=== PATIENT | female | born 1940 | race Native Hawaiian/Other Pacific Islander ===

== ENCOUNTER 2019-01-02 23:26 | Inpatient (IN) | payer MEDICARE ==
[~2019-01-02] VITALS: Ht 160 cm; Wt 81.0 kg
[2019-01-03 00:07] LABS: BASOPHILS % (AUTO) 0.5 % (0.0-2.0); EOSINOPHILS % (AUTO) 0.1 % (1.0-6.0); HEMATOCRIT 43.6 % (36-46); HEMOGLOBIN 14.4 g/dL (12.0-16.0); LYMPHOCYTES # (AUTO) 1.2 K/uL (1.0-4.8); LYMPHOCYTES % (AUTO) 9.6 % (22.0-44.0); MEAN CORPUSCULAR HEMOGLOBIN 31.7 pg (26.0-34.0); MEAN CORPUSCULAR HGB CONC 33.1 G/dL (31.0-37.0); MEAN CORPUSCULAR VOLUME 96 fL (80-100); MONOCYTES # (AUTO) 0.4 K/uL (0.1-1.0); MONOCYTES % (AUTO) 3.3 % (2.0-9.0); NEUTROPHILS # (AUTO) 10.5 K/uL (1.8-7.7); PLATELET COUNT (AUTO) 252 K/uL (150-450); RED BLOOD CELL COUNT(AUTO) 4.55 MIL/uL (4.00-5.20)
[2019-01-03 00:08] LABS: CALCIUM, TOTAL 10.5 mg/dL (8.8-10.5); CREATININE 1.21 mg/dL (0.60-1.30); NEUTROPHILS % (AUTO) 86.5 % (40.0-70.0); POTASSIUM 4.1 mmol/L (3.5-5.1)
[2019-01-03 00:12] LABS: ALBUMIN 4.4 g/dL (3.4-5.0); BILIRUBIN,TOTAL 0.8 mg/dL (0.1-1.0); TOTAL PROTEIN, SERUM 8.2 g/dL (6.4-8.2)
[2019-01-03] MEDS ORDERED: ONDANSETRON HCL 4 MG/2 ML VIAL IVP ONE ×2 (00:15→03:30)
[2019-01-03] MEDS ORDERED: MORPHINE SULFATE 4 MG/ML SYRINGE IVP ONE ×2 (00:15→03:30)
[2019-01-03] MEDS ORDERED: BARIUM SULFATE 0.1% SUSPENSION 450 ML BOTTLE PO ONE (00:15)
[2019-01-03] MEDS ORDERED: IOVERSOL 350 MG/ML 100 ML VIAL ONE (00:19)
[2019-01-03] MEDS ORDERED: SODIUM CHLORIDE 0.9% 100 ML ONE (00:20)
[2019-01-03 03:07] LABS: APPEARANCE,URINE CLEAR (CLEAR); BILIRUBIN,URINE NEGATIVE (NEGATIVE); GLUCOSE, URINE (UA) NEGATIVE (NEGATIVE); KETONES,URINE NEGATIVE (NEGATIVE); LEUKOCYTE ESTERASE ,URINE NEGATIVE (NEGATIVE); NITRATE,URINE NEGATIVE (NEGATIVE); OCCULT BLOOD,URINE SMALL (NEGATIVE); PROTEIN,URINE NEGATIVE (NEGATIVE); UROBILINOGEN,URINE 0.2 mg/dL (<=1.0)
[2019-01-03 03:50] LABS: BACTERIA,URINE None Seen /HPF (None Seen); SQUAMOUS EPITHELIAL CELL,UR Few /LPF (None Seen); WBC,URINE 0-2 /HPF (0-5)
[2019-01-03] MEDS ORDERED: ACETAMINOPHEN 325 MG TABLET PO PRN ×2 (04:15→07:30)
[2019-01-03] MEDS ORDERED: 0.9% SODIUM CHLORIDE 10 ML SYRINGE IVP PRN (04:15)
[2019-01-03] MEDS ORDERED: ONDANSETRON HCL 4 MG/2 ML VIAL IVP PRN ×2 (04:15→07:30)
[2019-01-03 05:10] VITALS: BP 145/71
[2019-01-03] MEDS ORDERED: PNEUMOCOCCAL VACCINE POLYVALENT 0.5 ML VIAL [PPSV23] IM ONE (06:30)
[2019-01-03] MEDS ORDERED: MORPHINE SULFATE 2 MG/ML SYRINGE IVP PRN (07:30)
[2019-01-03] MEDS ORDERED: DEXTROSE 5%-0.45% SODIUM CHL 1,000 ML IV ONE (07:30)
[2019-01-03 07:34] VITALS: BP 131/58
[2019-01-03] MEDS: DOCUSATE SODIUM 100 MG CAPSULE PO SCH ×2 (07:58→19:34)
[2019-01-03] MEDS: HEPARIN SODIUM,PORCINE 5,000 UNITS/ML VIAL SQ SCH ×2 (08:02→16:58)
[2019-01-03 11:18] VITALS: BP 135/60
[2019-01-03 14:52] LABS: BASOPHILS % (AUTO) 0.1 % (0.0-2.0); EOSINOPHILS % (AUTO) 0.5 % (1.0-6.0); HEMATOCRIT 42.9 % (36-46); HEMOGLOBIN 14.1 g/dL (12.0-16.0); LYMPHOCYTES # (AUTO) 0.7 K/uL (1.0-4.8); LYMPHOCYTES % (AUTO) 12.5 % (22.0-44.0); MEAN CORPUSCULAR HEMOGLOBIN 31.6 pg (26.0-34.0); MEAN CORPUSCULAR HGB CONC 32.9 G/dL (31.0-37.0); MEAN CORPUSCULAR VOLUME 96 fL (80-100); MONOCYTES # (AUTO) 0.4 K/uL (0.1-1.0); MONOCYTES % (AUTO) 6.2 % (2.0-9.0); NEUTROPHILS # (AUTO) 4.8 K/uL (1.8-7.7); NEUTROPHILS % (AUTO) 80.7 % (40.0-70.0); PLATELET COUNT (AUTO) 227 K/uL (150-450); RED BLOOD CELL COUNT(AUTO) 4.46 MIL/uL (4.00-5.20); RED CELL DISTRIBUTION WIDTH 14.1 % (11.5-14.5)
[2019-01-03 15:12] VITALS: BP 126/58
[2019-01-03] MEDS: PANTOPRAZOLE SODIUM 40 MG/VIAL IVP SCH (15:18)
[2019-01-03 15:19] LABS: ALBUMIN 3.7 g/dL (3.4-5.0); BILIRUBIN,TOTAL 1.2 mg/dL (0.1-1.0); CREATININE 1.17 mg/dL (0.60-1.30); TOTAL PROTEIN, SERUM 7.3 g/dL (6.4-8.2)
[2019-01-03 18:23] VITALS: BP 126/58
[2019-01-03 19:42] VITALS: BP 121/63
[2019-01-04] VITALS (7 sets, daily range): BP systolic 113–128; BP diastolic 43–70
[2019-01-04] MEDS: HEPARIN SODIUM,PORCINE 5,000 UNITS/ML VIAL SQ SCH ×4 (00:01→23:08)
[2019-01-04] MEDS: DOCUSATE SODIUM 100 MG CAPSULE PO SCH ×3 (09:00→20:20)
[2019-01-04] MEDS ORDERED: BENZOCAINE 20% 50 MCG/SPRAY 57 GM TP PRN (12:30)
[2019-01-04] MEDS: PANTOPRAZOLE SODIUM 40 MG/VIAL IVP SCH (18:35)
[2019-01-04] MEDS: DEXTROSE 5%-0.45% SODIUM CHL 1,000 ML IV SCH (18:40)
[2019-01-05 05:00] VITALS: BP 102/59
[2019-01-05 08:11] VITALS: BP 125/62
[2019-01-05] MEDS: PANTOPRAZOLE SODIUM 40 MG/VIAL IVP SCH (08:16)
[2019-01-05] MEDS: DEXTROSE 5%-0.45% SODIUM CHL 1,000 ML IV SCH (08:17)
[2019-01-05] MEDS: HEPARIN SODIUM,PORCINE 5,000 UNITS/ML VIAL SQ SCH (08:17)
[2019-01-05] MEDS: DOCUSATE SODIUM 100 MG CAPSULE PO SCH (08:17)
[2019-01-05 11:46] VITALS: BP 136/73
== END 2019-01-05 12:30 | disposition home or self-care (01) | DRG 389 ==
LOC: EMS 23:27 → 6N 01-03 03:34 → 4E 01-04 03:53
PROVIDERS: ADMIT Internal Medicine; ATTEND Internal Medicine
PROC: 0D9670Z Drainage of Stomach with Drainage Device, Via Natural or Artificial Opening (ICD-10-PCS; principal; 2019-01-03)
DX: K56.600 Partial intestinal obstruction, unspecified as to cause (principal); R65.10 Systemic inflammatory response syndrome (SIRS) of non-infectious origin without acute organ dysfunction; E66.9 Obesity, unspecified; Z85.038 Personal history of other malignant neoplasm of large intestine; R07.0 Pain in throat; Z87.891 Personal history of nicotine dependence; Z93.3 Colostomy status; Z90.49 Acquired absence of other specified parts of digestive tract; Z88.0 Allergy status to penicillin; Z68.31 Body mass index [BMI] 31.0-31.9, adult
CPT/HCPCS: 74018; 74177; 93005; 96374; 96375; 96376; C9113; G0378; J1644; J2270; J2405; J7050